=== PATIENT | female | born 1950 | race Caucasian/White ===

== ENCOUNTER 2017-07-06 05:30 | Emergency (ER) | payer OTHER, BC ==
[~2017-07-06] VITALS: Ht 162.6 cm; Wt 102.9 kg
[2017-07-06 06:55] LABS: HEMATOCRIT 41.3 % (36.0-46.0); MCH 29.7 PG (29.0-34.0); MCHC 32.7 G/DL (30.0-36.0); MEAN PLAT.VOLUME 10.8 uM^3 (9.5-12.4); PLATELET COUNT 236 K/uL (156-360); RBC DIS.WIDTH-CV 13.3 % (11.8-14.6); RBC DIS.WIDTH-SD 44.9 % (39-53); RED BLOOD COUNT 4.54 M/uL (3.80-5.20); WHITE BLOOD COUNT 15.3 K/uL (4.1-10.2)
[2017-07-06 07:20] LABS: ANION GAP 10 MEQ/L (2-14); CHLORIDE 107 MEQ/L (99-109); POTASSIUM 3.8 MEQ/L (3.7-5.4); SAMPLE HEMOLYSIS CHECK 0; SAMPLE ICTERIC CHECK 0; SAMPLE LIPEMIA CHECK 0; SODIUM 142 MEQ/L (136-147); TOTAL BILIRUBIN 0.4 MG/DL (0.0-1.0)
[2017-07-06 07:21] LABS: COLOR RED ((YELLOW))
[2017-07-06 07:22] LABS: BILIRUBIN NEGATIVE; BLOOD LARGE; GLUCOSE (STRIP) NEGATIVE; KETONES NEGATIVE
[2017-07-06 07:23] LABS: ADD MIUA? YES; LEUKOCYTES MODERATE; NITRITE NEGATIVE; PROTEIN (STRIP) 300; UROBILINOGEN 0.2 MG/DL (0.2-1.0)
[2017-07-06 07:25] LABS: RED BLOOD CELLS TNTC /HPF (0-5); UCUL ADDED? YES
[2017-07-06 07:26] LABS: ALKALINE PHOSPHATASE 55 IU/L (3-129); GFR ESTIMATE (CALCULATED) > 59 mL/min/; GLUCOSE 107 mg/dL (70-99); UREA NITROGEN (BUN) 25 mg/dL (9-23)
[2017-07-06] MEDS ORDERED: CIPRO250 MG PO (07:37)
[2017-07-06 07:51] VITALS: BP 145/91
== END 2017-07-06 07:51 | disposition home or self-care (01) ==
LOC: EME 05:30
PROVIDERS: Nurse Practitioner Family
DX: N30.91 Cystitis, unspecified with hematuria (principal); K59.00 Constipation, unspecified; Z88.0 Allergy status to penicillin; Z87.891 Personal history of nicotine dependence
CPT/HCPCS: 74176; 80053; 81003; 85027; 87077; 87086; 87186; 99281; 99284